=== PATIENT | female | born 1955 | race Caucasian/White ===

== ENCOUNTER → 2019-10-22 12:12 | Outpatient (CLI) | payer OTHER, SELFPAY ==
--- NOTE | ~2019-10-22 | MM_ITS ---
EXAMINATION: MM screening [facility] w [facility] HISTORY: Screening mammogram TECHNIQUE: Craniocaudal and mediolateral oblique 3-D tomosynthesis images were obtained and synthetic 2-D images were generated. CAD analysis was submitted and interpreted. COMPARISON: 07/25/2018, 02/01/2017, 10/01/2015 bilateral digital screening mammogram examinations BREAST PARENCHYMAL COMPOSITION: There are scattered areas of fibroglandular density. FINDINGS: There is no evidence of suspicious mass, calcification, or architectural distortion to sugg est malignancy in either breast. There has been no suspicious interval change. IMPRESSION: 1. No mammographic evidence of malignancy. 2. Recommend routine screening mammography in one year. BI-RADS Category 1: Negative Reviewed, dictated and finalized at location A. T COMMANDER
== END ==
PROVIDERS: PCP Nurse Practitioner Adult Health; Visit Provider Nurse Practitioner Adult Health
DX: Z12.31 Encounter for screening mammogram for malignant neoplasm of breast (principal)
CPT/HCPCS: 77063; 77067

== ENCOUNTER → 2020-12-02 13:49 | Outpatient (CLI) | payer BC, SELFPAY ==
--- NOTE | ~2020-12-02 | MM_ITS ---
EXAMINATION: MM screening [facility] w [facility] HISTORY: Screening mammogram TECHNIQUE: Craniocaudal and mediolateral oblique 3-D tomosynthesis images were obtained and synthetic 2-D images were generated. CAD analysis was submitted and interpreted. COMPARISON: 10/22/2019, 07/25/2018, 02/01/2017 bilateral digital screening mammogram examinations BREAST PARENCHYMAL COMPOSITION: There are scattered areas of fibroglandular density. FINDINGS: There is no evidence of suspicious mass, calcification, or architectural distortion to sugg est malignancy in either breast. There has been no suspicious interval change. IMPRESSION: 1. No mammographic evidence of malignancy. 2. Recommend routine screening mammography in one year. BI-RADS Category 1: Negative Reviewed, dictated and finalized at location A. MEN'S GOLF COACH
== END ==
PROVIDERS: PCP Nurse Practitioner Adult Health; Visit Provider Nurse Practitioner Adult Health
DX: Z12.31 Encounter for screening mammogram for malignant neoplasm of breast (principal)
CPT/HCPCS: 77063; 77067

== ENCOUNTER → 2022-01-25 12:40 | Outpatient (CLI) | payer BC, SELFPAY ==
--- NOTE | ~2022-01-25 | MM_ITS ---
EXAMINATION: MM screening [facility] w randall HISTORY: Screening mammogram TECHNIQUE: Craniocaudal and mediolateral oblique 3-D tomosynthesis images were obtained and synthetic 2-D images were generated. CAD analysis was submitted and interpreted. COMPARISON: 12/12/2020, 10/22/2019, 07/25/2018 bilateral screening mammogram examinations BREAST PARENCHYMAL COMPOSITION: There are scattered areas of fibroglandular density. FINDINGS: There is no evidence of suspicious mass, calcification, or architectural distortion to sugg est malignancy in either breast. There has been no suspicious interval change. IMPRESSION: 1. No mammographic evidence of malignancy. 2. Recommend routine screening mammography in one year. BI-RADS Category 1: Negative Reviewed, dictated and finalized at location A.
== END ==
PROVIDERS: PCP Nurse Practitioner Adult Health; Visit Provider Nurse Practitioner Adult Health
DX: Z12.31 Encounter for screening mammogram for malignant neoplasm of breast (principal)
CPT/HCPCS: 77063; 77067

== ENCOUNTER → 2023-03-30 13:16 | Outpatient (CLI) | payer MEDICARE, SELFPAY ==
--- NOTE | ~2023-03-30 | DEXA_ITS ---
Bone Density Report Name: MAXWELL VARGAS Age: 67 Sex: Female Ethnicity: White Date of : 1955 Indication: postmenopausal; screening for osteoporosis; Referring Provider: ISMAEL TORRES Study: Bone densitometry was performed. Exam Date: March 30, 2023 Accession number: [id number] Bone Density: Region BMD T-score Z-score Classification AP Spine (L1-L4) 0.922 -1.1 0.7 Osteopenia Femoral Neck (Left) 0.785 -0.6 1.0 Normal Total Hip (Left) 0.989 0.4 1.7 Normal Femoral Neck (Right) 0.713 -1.2 0.3 Osteopenia Total Hip (Right) 0.924 -0.1 1.1 Normal Total Hip Mean 0.957 0.2 1.4 Normal World Health Organization criteria for BMD impression classify patients as: Normal (T-score at or above -1.0), Osteopenia (T-score between -1.0 and -2.5), or Osteoporosis (T-score at or below -2.5). 10-year Fracture Risk(1): Major Osteoporotic Fracture 8.2% Hip Fracture 0.7% Reported Risk Factors: [place] (), Neck BMD=0.713, BMI=31.1 (1) FRAX(R) Version 3.08. Fracture probability calculated for an untreated patient. Fracture probability may be lower if the patient has received treatment. Previous Exams: Region Exam Age BMD T-score BMD Change BMD Change Date g/cm2 vs Baseline vs Previous AP Spine(L1-L4) 03/30/2023 67 0.922 -1.1 -0.155* -0.031* 07/25/2018 63 0.953 -0.9 -0.124* -0.004 02/27/2013 57 0.957 -0.8 -0.120* -0.120* 04/29/2008 53 1.077 0.3 Total Hip(Left) 03/30/2023 67 0.989 0.4 0.009 0.036* 07/25/2018 63 0.953 0.1 -0.027 0.059* 02/27/2013 57 0.895 -0.4 -0.085* -0.085* 04/29/2008 53 0.980 0.3 Total Hip(Right) 03/30/2023 67 0.924 -0.1 -0.038* -0.006 07/25/2018 63 0.930 -0.1 -0.032* 0.078* 02/27/2013 57 0.852 -0.7 -0.111* -0.111* 04/29/2008 53 0.962 0.2 *Denotes significance at 95% confidence level, LSC for AP Spine = 0.022 g/cm2, LSC for Total Hip = 0.027 g/cm2 Clinical Information Provided by Patient: Has used the following medications: Vitamin D, MTV, LEVOTHYROXINE Patient maximum height was 65.0 Menopause Age: 58 No regular weight bearing exercise Does not regularly consume dairy products Drinks caffeinated beverages Onset of menses at age 15 Number of children 0 Impression: The patient has low bone mass, based on th
== END ==
PROVIDERS: PCP Nurse Practitioner Family; Visit Provider Family Medicine
DX: Z13.820 Encounter for screening for osteoporosis (principal); M85.89 Other specified disorders of bone density and structure, multiple sites
CPT/HCPCS: 77080

== ENCOUNTER → 2023-04-20 11:19 | Outpatient (CLI) | payer MEDICARE, SELFPAY ==
--- NOTE | ~2023-04-20 | MM_ITS ---
EXAMINATION: MM screening [facility] BI w randall HISTORY: Screening mammogram TECHNIQUE: Craniocaudal and mediolateral oblique 3-D tomosynthesis images were obtained and synthetic 2-D images were generated. CAD analysis was submitted and interpreted. COMPARISON: 01/25/2022, 12/02/2020, 10/22/2019 BREAST PARENCHYMAL COMPOSITION: There are scattered areas of fibroglandular density. FINDINGS: No suspicious mass, calcification, or architectural distortion are identified in either ina ast to suggest malignancy. There has been no suspicious interval change. IMPRESSION: 1. No mammographic evidence of malignancy. 2. Recommend routine screening mammography in one year. BI-RADS Category 1: Negative Reviewed, dictated and finalized at location A.
== END ==
PROVIDERS: PCP Nurse Practitioner Family; Visit Provider Nurse Practitioner Family
DX: Z12.31 Encounter for screening mammogram for malignant neoplasm of breast (principal)
CPT/HCPCS: 77063; 77067

== ENCOUNTER 2023-05-16 08:00 | Outpatient (NON) | payer MEDICARE, SELFPAY | END 2023-05-16 08:01 | disposition home or self-care (01) | PROVIDERS: PCP Nurse Practitioner Family; Visit Provider Internal Medicine Gastroenterology | DX: Z86.010 Personal history of colon polyps (principal) | CPT/HCPCS: 88305 ==

== ENCOUNTER 2023-05-16 09:15 | Day surgery (SDC) | payer MEDICARE, SELFPAY ==
[2023-05-06 11:22] VITALS: BMI 30.8
--- NOTE | 2023-05-16 07:07 | WPDANESEPPF ---
Anes - Initial Pre Proc Eval Procedure: Operation Date: 05/16/23 11:00 Proposed Procedures p Screening Colonoscopy - Alejandro Mark MD Date/Time: 05/16/23 07:07 Surgeon: Alejandro Mark MD Pre Op Diagnosis: History of Colon Polyps Patient Data Age: 68 Gender: F Height: 1.65 m Weight: 84 kg Allergies Allergy/AdvReac Type Severity Reaction Status Date / Time ampicillin [From Polycillin] AdvReac Intermediate Rash Verified 05/16/23 09:56 calcitonin [From Miacalcin] AdvReac Intermediate Rash Verified 05/16/23 09:56 Penicillins AdvReac Intermediate Rash Verified 05/16/23 09:56 niacin AdvReac Rash Verified 05/16/23 09:56 Home Medications Medication Instructions Recorded Confirmed Type calcium carbonate 600 mg calcium 600 mg PO DAILY 10/29/22 05/16/23 History (1,500 mg) tablet (Calcium) cholecalciferol (vitamin D3) 50 100 mcg PO DAILY 10/29/22 05/16/23 History mcg (2,000 unit) capsule levothyroxine 75 mcg capsule 75 mcg PO DAILY 10/29/22 05/16/23 History rosuvastatin 20 mg tablet 20 mg PO DAILY 10/29/22 05/16/23 History amitriptyline 25 mg tablet 25 mg PO QHS #90 tabs 11/29/22 05/16/23 Rx mecobalamin (vitamin B12) 1 tab-cap PO DAILY 05/04/23 05/16/23 History losartan 50 mg tablet 50 mg PO DAILY #90 tabs 05/10/23 05/16/23 Rx omeprazole 40 mg capsule,delayed 40 mg PO DAILY #90 caps 05/10/23 05/16/23 Rx release Patient hx anesthesia problems: none Family hx anesthesia problems: none Results Review: All pre-operative results and documents have been reviewed as part of the pre-operative evaluation. [facility] Past Medical History Medical History (Updated 10/29/22 @ 12:18 by Dottie Olson NP) B12 deficiency Breast cancer screening Encounter to establish care Fall GERD (gastroesophageal reflux disease) Headache HTN (hypertension) Hx of colonic polyps Hyperlipidemia Hypothyroid Insomnia Irritable bowel syndrome with diarrhea Post-menopausal Thyroid disorder Family History Family History (Updated 10/29/22 @ 11:18 by EDWARD Byrd) Mother Hypertension Cerebrovascular accident Father Cerebrovascular accident Hypertension Social History Social History Smoking status: Never smoker Alcohol intake: current Alcohol use details: 2-3 times per week Substance use: never Substance use type: does not use Living arrangements: alone Spiritual care concerns: No Anes - Eval Final PreProcedure Day of Procedure 05/16/23 07:07 Patient weight: obese Heart: regular rate and rhythm Lungs: clear to auscultation Airway: Mallampati scale class II Neurological: alert and oriented Last oral intake: >/= 8 hours ASA classification: III Emergent: no Anesthetic plan: proceed Anesthesia type and monitoring: general GIVS and standard monitoring Results Review: All pre-operative results and documents have been reviewed as part of the pre-operative evaluation. Informed Consent: The patient's anesthetic plan and its attendant risks and benefits were discussed with the patient/family/POA. Questions were solicited and answers provided to the satisfaction of the patient/family/POA.
[2023-05-16 10:02] VITALS: BP 130/76; PULSE 83; RESP 16; TEMP 36.4; O2SAT 99
[2023-05-16] MEDS: LACTATED RINGERS 1,000 ML 150 ML IV CONT (10:10)
--- NOTE | 2023-05-16 11:31 | PM.HPGS ---
History of Present Illness History of Present Illness Consent: Risks, benefits, and alternatives have been discussed and questions answered. Patient agrees to proceed with procedure. Chief complaint: History of Colon Polyps Narrative: Marzena Hartmann is a 68 year old female with colon polyp 5 years ago Review of Systems Constitutional: Constitutional: Denies headache(s) and Denies weakness Eyes: Eyes: Denies blurry vision ENT: Reports Normal hearing present, Denies headache(s) and Denies neck pain Cardiovascular: Cardiovascular: Denies chest pain and Denies dyspnea Respiratory: Respiratory: Denies dyspnea Gastrointestinal: Gastrointestinal: Reports no additional gastrointestinal complaints Genitourinary: Genitourinary: Denies dysuria Musculoskeletal: Musculoskeletal: Denies neck pain Integumentary/Breasts: Skin/Breast: Denies dry skin Neurologic: Reports Normal hearing present, Denies headache(s) and Denies weakness Psychiatric: Psychiatric: Denies anxiety Endocrine: Endocrine: Denies change in body appearance Hematologic/Lymphatic: Hematologic/Lymphatic: Denies easy bleeding Allergic/Immunologic: Allergic/Immunologic: Denies urticaria PMFSH Past Medical History Medical History (Updated 10/29/22 @ 12:18 by Dottie Olson NP) B12 deficiency Breast cancer screening Encounter to establish care Fall GERD (gastroesophageal reflux disease) Headache HTN (hypertension) Hx of colonic polyps Hyperlipidemia Hypothyroid Insomnia Irritable bowel syndrome with diarrhea Post-menopausal Thyroid disorder Family History Family History (Updated 10/29/22 @ 11:18 by EDWARD Byrd) Mother Hypertension Cerebrovascular accident Father Cerebrovascular accident Hypertension Social History Social History Smoking status: Never smoker Alcohol intake: current Alcohol use details: 2-3 times per week Substance use: never Substance use type: does not use Living arrangements: alone Spiritual care concerns: No Meds Home Medications and Allergies Home Medications Medication Instructions Recorded Confirmed Type calcium carbonate 600 mg calcium 600 mg PO DAILY 10/29/22 05/16/23 History (1,500 mg) tablet (Calcium) cholecalciferol (vitamin D3) 50 100 mcg PO DAILY 10/29/22 05/16/23 History mcg (2,000 unit) capsule levothyroxine 75 mcg capsule 75 mcg PO DAILY 10/29/22 05/16/23 History rosuvastatin 20 mg tablet 20 mg PO DAILY 10/29/22 05/16/23 History amitriptyline 25 mg tablet 25 mg PO QHS #90 tabs 11/29/22 05/16/23 Rx mecobalamin (vitamin B12) 1 tab-cap PO DAILY 05/04/23 05/16/23 History losartan 50 mg tablet 50 mg PO DAILY #90 tabs 05/10/23 05/16/23 Rx omeprazole 40 mg capsule,delayed 40 mg PO DAILY #90 caps 05/10/23 05/16/23 Rx release Allergies Allergy/AdvReac Type Severity Reaction Status Date / Time ampicillin [From Polycillin] AdvReac Intermediate Rash Verified 05/16/23 09:56 calcitonin [From Miacalcin] AdvReac Intermediate Rash Verified 05/16/23 09:56 Penicillins AdvReac Intermediate Rash Verified 05/16/23 09:56 niacin AdvReac Rash Verified 05/16/23 09:56 Vital Signs Vital Signs - 24 hr 05/16/23 10:02 Temperature 97.6 F Pulse Rate 83 Respiratory Rate 16 Blood Pressure 130/76 Pulse Oximetry 99 Oxygen Delivery Room Air Exam Const: General: comfortable and no acute distress HENMT: Face/Nose/Sinus: Normal nares present Eyes: General: appearance normal, both eyes and all related structures Neck: Neck: no JVD Resp: Auscultation: clear to auscultation bilaterally Cardio: Rate: regular rate Rhythm: regular rhythm GI: Inspection: non-distended GI Palp: Yes Soft to palpation Skin: General skin exam: normal color Neuro: General: gait normal Speech: normal speech Extrem: General: normal to inspection Psych: Mental Status: mental status grossly normal Assessment and Plan Assessment
[2023-05-16 11:46] VITALS: BP 112/64; PULSE 78; RESP 16; O2SAT 98
[2023-05-16 11:56] VITALS: BP 111/64; PULSE 69; RESP 16; O2SAT 100
[2023-05-16 12:06] VITALS: BP 113/82; PULSE 80; RESP 16; O2SAT 100
--- NOTE | 2023-05-16 12:36 | WPDANESPN ---
Anes - Prog Note Post-Op Date/Time: 05/16/23 12:36 Cardiovascular status: normal Respiratory status: normal Airway patency: baseline Mental status: baseline Post-Op hydration status: normal Vital Signs: Last Vital Signs Temp 36.4 C 05/16/23 10:02 Pulse 80 05/16/23 12:06 Resp 16 05/16/23 12:06 BP 113/82 05/16/23 12:06 Pulse Ox 100 05/16/23 12:06 O2 Del Method Room Air 05/16/23 12:06 Pain Score (VAS): 0 I/O: Intake & Output 05/15/23 05/16/23 05/16/23 23:59 07:59 15:59 Intake Total 200 Balance 200 Post-procedural complaints: none Patient Feedback: Patient satisfied with anesthetic care. Other Findings: Patient vital signs back to baseline. Patient denies nausea and vomiting. Patient's pain under control. Patient OK for discharge.
== END 2023-05-16 12:25 | disposition home or self-care (01) ==
PROVIDERS: PCP Nurse Practitioner Family; Visit Provider Internal Medicine Gastroenterology
PROC: 0DJD8ZZ Inspection of Lower Intestinal Tract, Via Natural or Artificial Opening Endoscopic (ICD-10-PCS; CPT 45378; principal; 2023-05-16 11:00)
DX: Z86.010 Personal history of colon polyps (principal); D12.2 Benign neoplasm of ascending colon; K57.30 Diverticulosis of large intestine without perforation or abscess without bleeding; K64.8 Other hemorrhoids
CPT/HCPCS: 45380

== ENCOUNTER 2024-05-14 12:48 | Outpatient (CLI) | payer MEDICARE, SELFPAY ==
--- NOTE | ~2024-05-14 | MM_ITS ---
EXAMINATION: MM screening [facility] BI w [facility]all HISTORY: Screening TECHNIQUE: Craniocaudal and mediolateral oblique 3-D tomosynthesis images were obtained and synthetic 2-D images were generated. CAD analysis was submitted and interpreted. COMPARISON: Comparison to multiple prior studies sequentially, with oldest reviewed study dated 05/2017. BREAST PARENCHYMAL COMPOSITION: Not dense: There are scattered areas of fibroglandular density. FINDINGS: There is no evidence of suspicious mass, calcification, or architectural distortion to sugg est malignancy in either breast. There has been no suspicious interval change. IMPRESSION: 1. No mammographic evidence of malignancy. 2. Recommend routine screening mammography in one year. BI-RADS Category 1: Negative Reviewed, dictated and finalized at location B.
== END 2024-05-14 12:49 ==
LOC: MICIMG 12:49
PROVIDERS: PCP Nurse Practitioner Family; Visit Provider Nurse Practitioner Family
DX: Z12.31 Encounter for screening mammogram for malignant neoplasm of breast (principal)
CPT/HCPCS: 77063; 77067

== ENCOUNTER 2025-04-12 15:00 | Outpatient (CLI) | payer MEDICARE, SELFPAY ==
--- NOTE | ~2025-04-12 | DEXA_ITS ---
Bone Density Report Name: MAXWELL VARGAS Age: 70 Sex: Female Ethnicity: White Date of : 1955 Indication: osteopenia; Referring Provider: CAREY VERGARA Study: Bone densitometry was performed. Exam Date: April 12, 2025 Accession number: [id number] Bone Density: Region BMD T-score Z-score Classification AP Spine(L1-L4) 0.918 -1.2 0.8 Osteopenia Femoral Neck (Left) 0.697 -1.4 0.3 Osteopenia Total Hip (Left) 0.957 0.1 1.5 Normal Femoral Neck (Right) 0.653 -1.8 -0.1 Osteopenia Total Hip (Right) 0.886 -0.5 0.9 Normal Total Hip Mean 0.922 -0.2 1.2 Normal World Health Organization criteria for BMD impression classify patients as: Normal (T-score at or above -1.0), Osteopenia (T-score between -1.0 and -2.5), or Osteoporosis (T-score at or below -2.5). 10-year Fracture Risk(1): Major Osteoporotic Fracture 10% Hip Fracture 1.4% Reported Risk Factors: [place] (), Neck BMD=0.653, BMI=29.1 (1) FRAX(R) Version 3.08. Fracture probability calculated for an untreated patient. Fracture probability may be lower if the patient has received treatment. Previous Exams: -- Region Exam Age BMD T-score BMD Change BMD Change Date g/cm2 vs Baseline vs Previous -- AP Spine (L1-L4) 04/12/2025 70 0.918 -1.2 -14.7%* -0.4% 03/30/2023 67 0.922 -1.1 -14.4%* -3.3%* 07/25/2018 63 0.953 -0.9 -11.5%* -0.4% 02/27/2013 57 0.957 -0.8 -11.1%* -11.1%* 04/29/2008 53 1.077 0.3 Total Hip(Left) 04/12/2025 70 0.957 0.1 -2.3% -3.2%* 03/30/2023 67 0.989 0.4 1.0% 3.8%* 07/25/2018 63 0.953 0.1 -2.7% 6.6%* 02/27/2013 57 0.895 -0.4 -8.7%* -8.7%* 04/29/2008 53 0.980 0.3 Total Hip(Right) 04/12/2025 70 0.886 -0.5 -7.9%* -4.1%* 03/30/2023 67 0.924 -0.1 -4.0%* -0.7% 07/25/2018 63 0.930 -0.1 -3.3%* 9.2%* 02/27/2013 57 0.852 -0.7 -11.5%* -11.5%* 04/29/2008 53 0.962 0.2 -- *Denotes significance at 95% confidence level, LSC for AP Spine = 0.022 g/cm2, LSC for Total Hip = 0.027 g/cm2 Clinical Information Provided by Patient: Has used the following medications: Vitamin D, Levothyroxine Patient maximum height was 65.0 Menopause Age: 58 No regular weight bearing exercise Does not regularly consume dairy products Drinks caffeinated beverages Onset of menses at age 15 Number of children 0 Impression: The patient has low bone mass, based on the Right Femoral Neck T-score. The patient has an estimated ten-year risk of hip fracture of 1.4% and an estimated ten-year risk of major fracture of 10%, based on the WHO FRAX algorithm. The BMD for the Total Hip(Left) decreased, changing by -3.2% since the last DXA exam. The BMD for the Total Hip(Right) decreased, changing by -4.1% since the last DXA exam. Discussion: BONE DENSITY IS LOW AT ONE OR MORE SKELETAL SITES. This patient's lowest T-score is low at one or more skeletal sites. It meets the World Health Organization's (WHO) criteria for ?low bone mass? (T-score between -1.0 and -2.5). The patient's 10-year risk of fracture as calculated by FRAX is less than the threshold where pharmacological therapy is recommended by the National Osteoporosis Foundation (NOF). However, all treatment decisions require clinical judgment and consideration of individual patient factors, including patient preferences, comorbidities, previous drug use, risk factors not captured in the FRAX model (e.g., frailty, falls, vitamin D deficiency, increased bone turnover, interval significant decline in bone density) and possible under or overestimation of fracture risk by FRAX. The patient should follow a healthful lifestyle (good nutrition with adequate calcium and vitamin D, and appropriate weight-bearing exercise). Follow-Up: Consider repeating this study in 2 years to reassess this patient's status, or sooner if there is some new clinical indication. Reported by: BARBARA on 04/12/2025 3:25:00 PM. Reviewed, dictated and finalized at location A.
== END 2025-04-12 15:01 | disposition home or self-care (01) ==
LOC: MICIMG 15:01
PROVIDERS: PCP Nurse Practitioner Family; Visit Provider Nurse Practitioner Family
DX: M85.89 Other specified disorders of bone density and structure, multiple sites (principal); Z78.0 Asymptomatic menopausal state
CPT/HCPCS: 77080

== ENCOUNTER 2025-05-01 09:02 | Outpatient (CLI) | payer MEDICARE, SELFPAY ==
[2025-05-01 09:46] LABS: Hematocrit 38.5 % (37.0-47.0); Hemoglobin 12.3 g/dL (12.0-15.0); Immature Granulocyte Percent A 0.2 % (0-0.5); Lymphocytes Absolute Auto 1.77 K/mm3 (0.9-3.2); Mean Corpuscular HGB Conc 31.9 g/dl (32-36); Mean Corpuscular Hemoglobin 29.1 pg (26-34); Mean Corpuscular Volume 91.2 fl (80-100); Nucleated Red Blood Cells Absolute Auto 0.000 K/mm3 (0.0-0.012); Nucleated Red Blood Cells Perc 0.0 % (0.0-0.2); Platelet Count Result 214 k/mm3 (150-375); Red Blood Count 4.22 M/mm3 (4.2-5.4); White Blood Count 5.3 K/mm3 (4.5-10.0)
[2025-05-01 09:48] LABS: Add Urine Microscopic? NO; Appearance Urine Clear (Clear); Glucose Urine UA Negative (Negative); Leukocyte Esterase Ur Negative LEU/UL (Negative); Nitrate Urine Negative (Negative); Specific Grav Ur 1.021 (1.001-1.035)
[2025-05-01 10:20] LABS: Alanine Aminotransferase 28 U/L (6-35); Albumin Level 4.2 g/dL (3.5-5.1); Alkaline Phosphatase 84 U/L (38-126); Anion Gap 6 mmol/L (4-12); Aspartate Amino Transferase 42 U/L (14-36); Bilirubin,Total 0.9 mg/dL (0.2-1.3); Blood Urea Nitrogen 16 mg/dL (7-17); Calcium 9.2 mg/dL (8.4-10.2); Carbon Dioxide 27 mmol/L (22-30); Chloride 107 mmol/L (98-107); Cholesterol 181 mg/dL (0-200); Estimated Glomerular Filt Rate > 60; Glucose 90 mg/dL (65-110); HDL Direct 61 mg/dL; Potassium 4.4 mmol/L (3.4-5.0); Sodium 140 mmol/L (137-145); Total Protein 7.1 g/dL (6.3-8.2); Triglycerides 156 mg/dL (<150)
[2025-05-01 10:27] LABS: Free T4 Free Thyroxine 0.99 ng/dL (0.78-2.19)
[2025-05-01 10:55] LABS: Thyroid Stimulating Hormone 1.930 uIU/mL (0.465-4.680)
[2025-05-01 11:27] LABS: Vitamin B12 > 1000.0 pg/mL (239-931)
== END 2025-05-01 09:03 | disposition home or self-care (01) ==
LOC: ANHLAB 09:02
PROVIDERS: PCP Nurse Practitioner Family; Visit Provider Nurse Practitioner Family
DX: E03.9 Hypothyroidism, unspecified (principal); I10 Essential (primary) hypertension; E78.5 Hyperlipidemia, unspecified; E53.8 Deficiency of other specified B group vitamins
CPT/HCPCS: 36415; 80053; 80061; 81003; 82607; 84439; 84443; 85025

== ENCOUNTER 2025-05-16 11:11 | Outpatient (CLI) | payer MEDICARE, SELFPAY ==
--- NOTE | ~2025-05-16 | MM_ITS ---
EXAMINATION: MM screening [facility] BI w randall HISTORY: Screening mammogram TECHNIQUE: Craniocaudal and mediolateral oblique 3-D tomosynthesis images were obtained and synthetic 2-D images were generated. CAD analysis was submitted and interpreted. COMPARISON: 05/14/2024, 04/20/2023, 01/25/2022 BREAST PARENCHYMAL COMPOSITION:Not Dense. The breasts are almost entirely fatty FINDINGS: No suspicious mass, calcification, or architectural distortion are identified in either breast to suggest malignancy. There has been no suspicious interval change. IMPRESSION: No mammographic evidence of malignancy. Recommend routine screening mammography in one year. BI-RADS Category 1: Negative Reviewed, dictated and finalized at location .
== END 2025-05-16 11:12 | disposition home or self-care (01) ==
LOC: MICIMG 11:12
PROVIDERS: PCP Nurse Practitioner Family; Visit Provider Nurse Practitioner Family
DX: Z12.31 Encounter for screening mammogram for malignant neoplasm of breast (principal)
CPT/HCPCS: 77063; 77067